=== PATIENT | male | born 1965 | race African-American/Black ===

== ENCOUNTER 2017-12-28 12:12 | Observation (INO) | payer OTHER ==
[~2017-12-28] VITALS: Ht 172.7 cm; Wt 88.0 kg
[2017-12-28 13:05] LABS: BASO % 0.1 %; BASO ABS # 0.01 K/uL (0-0.2); EOS % 0.1 %; EOS ABS # 0.01 K/uL (0-0.5); HEMATOCRIT 51.2 % (42-52); HEMOGLOBIN 17.8 g/dL (14.0-18.0); IG# 0.02 K/uL (0.00-0.02); LYMPH % 4.1 %; LYMPH ABS # 0.33 K/uL (1.2-3.4); MEAN CELL VOLUME 90.9 fL (80-100); MEAN CORPUSCULAR HEMOGLOBIN 31.6 pg (25-34); MEAN CORPUSCULAR HGB CONC 34.8 g/dl (32-36); MEAN PLATELET VOLUME 11.6 fL (7.4-10.4); MONO % 0.7 %; MONO ABS # 0.06 K/uL (0.11-0.59); NEUT % 94.8 %; NEUT ABS # 7.58 K/uL (1.4-6.5); PLATELET COUNT 190 K/uL (130-400); RED CELL DISTRIBUTION WIDTH CV 14.2 % (11.5-14.5); RED CELL DISTRIBUTION WIDTH SD 46.2 fL (36.4-46.3); WHITE BLOOD COUNT 8.01 K/uL (4.8-10.8)
--- NOTE | 2017-12-28 13:05 | DIAGNOSTIC IMAGING REPORT ---
CHEST ONE VIEW PORTABLE CLINICAL HISTORY: Chest Pain dyspnea COMPARISON STUDY: No previous studies for comparison. FINDINGS: The bones soft tissues and hemidiaphragms are normal. The cardiomediastinal silhouette is normal. The lungs are clear. The pulmonary vasculature is normal. IMPRESSION: Negative chest. The above report was generated using voice recognition software. It may contain grammatical, syntax or spelling errors. Electronically signed by: Kelechi Alberts M.D. 12/28/2017 1:04 PM Dictated Date/Time: 12/28/2017 1:03 PM
[2017-12-28] MEDS ORDERED: METH2.5T PO (13:20)
[2017-12-28] MEDS ORDERED: HYDR-5688 PO (13:26)
[2017-12-28] MEDS ORDERED: IBUP-103 PO (13:26)
[2017-12-28] MEDS ORDERED: FOLI1TAB8 PO (13:26)
[2017-12-28] MEDS ORDERED: PRD/1 PO (13:26)
[2017-12-28] MEDS ORDERED: ASPIRIN 81 MG CHEW PO STA (13:47)
[2017-12-28 14:05] LABS: ALBUMIN 2.8 gm/dl (3.4-5.0); ALT/SGPT 27 U/L (12-78); AST/SGOT 18 U/L (15-37); BLOOD UREA NITROGEN 20 mg/dl (7-18); CALCIUM 8.3 mg/dl (8.5-10.1); CARBON DIOXIDE 23 mmol/L (21-32); CREATININE 0.96 mg/dl (0.60-1.40); GLUCOSE 146 mg/dl (70-99); POTASSIUM 3.9 mmol/L (3.5-5.1); SODIUM 137 mmol/L (136-145)
[2017-12-28 14:10] LABS: ALKALINE PHOSPHATASE 62 U/L (45-117); TOTAL PROTEIN 6.9 gm/dl (6.4-8.2)
--- NOTE | 2017-12-28 14:24 | EMERGENCY ROOM VISIT NOTE ---
History Report prepared by Rosita: Jf Marx Under the Supervision of: Dr. Dave Minor M.D. First contact with patient: 12:28 Chief Complaint: OTHER COMPLAINT Stated Complaint: RITUXAN REACTION History of Present Illness The patient is a 52 year old male who presents to the Emergency Room with several different complaints that occurred just prior to arrival while he was receiving an infusion for his rheumatoid arthritis. The patient states that while he was receiving his medications he suddenly got a sore throat and was having trouble swallowing. He describes the pain as the "throat swelling." He also notes that he had a pain in his upper abdomen/lower chest the left side. He described it more as an ache. No exacerbating or remitting factors. After the sorethroat onset he felt tingling all over his body and became diaphoretic. This is the third infusion the patient has received, and he tolerated the first two well. He denies any trouble breathing, chest pain, burning with urination. He notes that he feels pretty much back to baseline at this time. Upon arrival to the ER all of his symptoms nearly completely abated. Source of History: patient Onset: Just prior to arrival Position: throat Quality: other (swelling throat) Timing: resolved Associated Symptoms: + diaphoresis, + numbness ("tingling" all over his body ), No chest pain, No SOB, No urinary symptoms Review of Systems See HPI for pertinent positives & negatives. A total of 10 systems reviewed and were otherwise negative. Past Medical & Surgical Hx of Hypertension and Rheumatoid Arthritis Social History Smoking Status: Never Smoker Current/Historical Medications Scheduled Folic Acid (Folvite), 1 MG PO QAM Ibuprofen Tab (Advil), 800 MG PO UD Methotrexate (Methotrexate), 6 TABS PO TUESDAY Prednisone (Prednisone), 1.5 MG PO QAM Scheduled PRN Hydrocodone/Acetaminophen 5MG/325MG ([place] 5MG/325MG), 1 TABLET PO Q6H PRN for Pain Allergies Coded Allergies: No Known Allergies (Unverified , 12/28/17) Physical Exam Vital Signs Date Time Temp Pulse Resp B/P (MAP) Pulse Ox O2 Delivery O2 Flow Rate FiO2 12/28/17 14:11 75 16 144/112 12/28/17 12:18 36.7 81 20 142/104 96 Room Air Physical Exam GENERAL: Sitting up in bed, alert, well appearing, well nourished, no distress, non-toxic EYE EXAM: normal conjunctiva. OROPHARYNX: no exudate, no erythema, lips, buccal mucosa, and tongue normal and mucous membranes are moist NECK: supple, no nuchal rigidity, no adenopathy, non-tender LUNGS: Clear to auscultation. Normal chest wall mechanics HEART: no murmurs, S1 normal and S2 normal ABDOMEN: abdomen soft, non-tender, normo-active bowel sounds, no masses, no rebound or guarding. BACK: Back is symmetrical on inspection and there is no deformity, no midline tenderness, no CVA tenderness. SKIN: no rashes and no bruising UPPER EXTREMITIES: upper extremities are grossly normal. There is an IV placed in the right forearm. LOWER EXTREMITIES: No pitting edema. NEURO EXAM: Normal sensorium, cranial nerves II-XII grossly intact, normal speech, no gross weakness of arms, no gross weakness of legs. Medical Decision & Procedures ER Provider Diagnostic Interpretation: Radiology results as stated below per my review and the radiologist's interpretation: CHEST ONE VIEW PORTABLE CLINICAL HISTORY: Chest Pain dyspnea COMPARISON STUDY: No previous studies for comparison. FINDINGS: The bones soft tissues and hemidiaphragms are normal. The cardiomediastinal silhouette is normal. The lungs are clear. The pulmonary vasculature is normal. IMPRESSION: Negative chest. The above report was generated using voice recognition software. It may contain grammatical, syntax or spelling errors. Electronically signed by: Kelechi Alberts M.D. 12/28/2017 1:04 PM Dictated Date/Time: 12/28/2017 1:03 PM Laboratory Results 12/28/17 10:55 Red Blood Count 5.63, Mean Corpuscular Volume 90.9, Mean Corpuscular Hemoglobin 31.6, Mean Corpuscular Hemoglobin Concent 34.8, Mean Platelet Volume 11.6, Neutrophils (%) (Auto) 94.8, Lymphocytes (%) (Auto) 4.1, Monocytes (%) (Auto) 0.7, Eosinophils (%) (Auto) 0.1, Basophils (%) (Auto) 0.1, Neutrophils # (Auto) 7.58, Lymphocytes # (Auto) 0.33, Monocytes # (Auto) 0.06, Eosinophils # (Auto) 0.01, Basophils # (Auto) 0.01 12/28/17 13:32 Test 12/28/17 10:55 12/28/17 13:32 12/28/17 13:34 White Blood Count 8.01 K/uL (4.8-10.8) Red Blood Count 5.63 M/uL (4.7-6.1) Hemoglobin 17.8 g/dL (14.0-18.0) Hematocrit 51.2 % (42-52) Mean Corpuscular Volume 90.9 fL (80-100) Mean Corpuscular Hemoglobin 31.6 pg (25-34) Mean Corpuscular Hemoglobin Concent 34.8 g/dl (32-36) Platelet Count 190 K/uL (130-400) Mean Platelet Volume 11.6 fL (7.4-10.4) Neutrophils (%) (Auto) 94.8 % Lymphocytes (%) (Auto) 4.1 % Monocytes (%) (Auto) 0.7 % Eosinophils (%) (Auto) 0.1 % Basophils (%) (Auto) 0.1 % Neutrophils # (Auto) 7.58 K/uL (1.4-6.5) Lymphocytes # (Auto) 0.33 K/uL (1.2-3.4) Monocytes # (Auto) 0.06 K/uL (0.11-0.59) Eosinophils # (Auto) 0.01 K/uL (0-0.5) Basophils # (Auto) 0.01 K/uL (0-0.2) RDW Standard Deviation 46.2 fL (36.4-46.3) RDW Coefficient of Variation 14.2 % (11.5-14.5) Immature Granulocyte % (Auto) 0.2 % Immature Granulocyte # (Auto) 0.02 K/uL (0.00-0.02) Anion Gap 4.0 mmol/L (3-11) Est Creatinine Clear Calc Drug Dose 97.6 ml/min Estimated GFR () 104.9 Estimated GFR (Non- 90.5 BUN/Creatinine Ratio 20.8 (10-20) Calcium Level 8.3 mg/dl (8.5-10.1) Total Bilirubin 0.4 mg/dl (0.2-1) Direct Bilirubin < 0.1 mg/dl (0-0.2) Aspartate Amino Transf (AST/SGOT) 18 U/L (15-37) Alanine Aminotransferase (ALT/SGPT) 27 U/L (12-78) Alkaline Phosphatase 62 U/L (45-117) Troponin I < 0.015 ng/ml (0-0.045) Total Protein 6.9 gm/dl (6.4-8.2) Albumin 2.8 gm/dl (3.4-5.0) Laboratory results per my review. Medications Administered Medications (Trade) Dose Ordered Sig/Maile Route Start Time Stop Time Status Last Admin Dose Admin Aspirin (Aspirin Chew) 324 mg NOW STAT PO 12/28/17 13:47 12/28/17 13:50 DC 12/28/17 14:10 324 MG ECG Per My Interpretation Indication: diaphoresis Rate (beats per minute): 79 Rhythm: sinus rhythm Findings: T-wave inversion (Lateral), ST elevation (Septal) Change: REPEAT EKG ON VISIT IS UNCHANGED ED Course ED COURSE: Vital signs were reviewed and showed situationally hypertensive blood pressure. The patients medical record was reviewed The above diagnostic studies were performed and reviewed. ED treatments and interventions as stated above. 1233: The patient was evaluated in room C5. A complete history and physical examination was performed. 1432: I discussed the case with Dr. Anderson - Cardiology. He suggests admitting the patient to medicine and starting Heparin. 1437: Upon reevaluation, the patient is resting in bed.I discussed my findings with the patient and he understands and agrees with the treatment plan. Based on the patients age, coexisting illnesses, exam and lab findings the decision to treat as an inpatient was made. The patient remained stable while under my care. The patient will be evaluated for further management. 1442: I discussed the case with Adriana Lira [facility] Hospitalist VALERIO. She will evaluate the patient for further treatment. Medical Decision Differential diagnosis: Etiologies such as allergic reaction, anaphylaxis, urticaria, Tim-Nic syndrome, toxic epidermal necrolysis, erythema multiforme, cellulitis, as well as others were entertained. Patient is a 52-year-old male with a past medical history of hypertension and family heart disease that presents to the ER with left upper quadrant/left chest pain associated with nausea, diaphoresis and near vomiting. Symptoms nearly completely resolved upon presentation to the ER. He has no chest pain or shortness of breath. EKG shows flipped T waves in the lateral leads with ST segment elevation in the septal. Patient was completely asymptomatic in regards to chest pain shortness of breath upon presentation consequently did not make this a STEMI alert. 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 Consequently called cardiology from [facility] and discussed case. Labs including CBC along with BMP and troponin were negative. Re-updated the patient. Per cardiology's recommendation patient was placed on heparin drip and bolus after prolonged discussion in regards to bleeding risk factors. He denies any previous brain bleed, strokes, coughing up blood, vomiting blood, urinating blood or blood in the stool. He denies any trauma. Medication Reconcilliation Current Medication List: was personally reviewed by me Blood Pressure Screening Patient's blood pressure: Elevated blood pressure Blood pressure disposition: Elevated BP felt to be situational Consults Time Called: 1427 Consulting Physician: Dr. Monica Walters Cardiology Returned Call: 1432 I discussed the case with Dr. Anderson - [place]. He suggests admitting the patient to medicine and starting Heparin. Additional Consults: Time Called: 1437 Consulted Physician: Adriana Stewart PA-C Returned Call: 1434 Additional Comments: I discussed the case with Adriana Stewart PA-C. She will evaluate the patient for further treatment. Impression Primary Impression: Chest pain Additional Impressions: ST segment changes on electrocardiogram Reaction, drug, adverse Critical Care I have personally spent 35 minutes of critical care time in the direct management of this patient. This includes bedside care, interpretation of diagnostic studies, and testing, discussion with consultants, patient, and family members, and other required patient management activities. This 35 minutes is in excess of all separately billable procedures. Scribe Attestation The scribe's documentation has been prepared under my direction and personally reviewed by me in its entirety. I confirm that the note above accurately reflects all work, treatment, procedures, and medical decision making performed by me. Departure Information Dispostion Being Evaluated By Hospitalist Patient Instructions My [facility] Problem Qualifiers Primary Impression: Chest pain Chest pain type: unspecified Qualified Codes: R07.9 - Chest pain, unspecified Additional Impressions: Reaction, drug, adverse Encounter type: initial encounter Qualified Codes: T88.7XXA - Unspecified adverse effect of drug or medicament, initial encounter
[2017-12-28 15:11] LABS: PTT PATIENT 23.3 SECONDS (21.0-31.0)
[2017-12-28] MEDS ORDERED: HYDR-3983 PO (15:21)
[2017-12-28 15:22] VITALS: BP_SYST 171; BP_SYST 178; BP_DIAS 101; BP_DIAS 115; PULSE 81; TEMP 37.2; O2SAT 96; Ht 172.7 cm; Wt 88.0 kg
--- NOTE | 2017-12-28 15:27 | History and Physical ---
History & Physical Date & Time of Service: Dec 28, 2017 at 15:24 Chief Complaint: Rituxan Reaction Primary Care Physician: No Doctor, Assigned History of Present Illness Source: patient, clinic records, hospital records Patient is a 52-year-old male with a PMH of HTN, tobacco use disorder and rheumatoid arthritis who presents from [facility] with sudden onset left chest/LUQ pain. Patient was receiving Rituxan infusion and started to experience a sore throat, trouble swallowing "tingling" all over his body. Then experienced sudden onset, 10/10 left lower chest/epigastric pain that felt like "someone punching me in the gut". Endorses profuse sweating, nausea and an episode of bilious vomit. Denies any shortness of breath, near syncope or radiation of pain to jaw or arms. Patient was taken to ED for further evaluation and symptoms completely resolved by the time he arrived. No previous history of heart disease, diabetes or high cholesterol. Patient's mom from [place] at age 58. Also has significant history of lupus in family with cardiac manifestations. Has experienced 2 previous cycles of Rituxan and tolerated them without a problem. Follows with Dr. Rodriguez of [facility] rheumatology and current regimen includes 1.5 prednisone mg daily, Rituxan infusions and methotrexate 15 mg weekly. Denies fever, chills, lightheadedness, dizziness, near syncope, visual changes, chest pain, shortness of breath, abdominal pain, nausea, vomiting, bowel or bladder changes or LE swelling. Past Medical/Surgical History Medical Problems: (1) HTN (hypertension) Status: Chronic (2) Rheumatoid arthritis involving ankle with positive rheumatoid factor Status: Chronic (3) Tobacco use disorder Status: Chronic Family History FH: heart disease FH: lupus FHx: rheumatoid arthritis Social History Smoking Status: Current Every Day Smoker (0.5 ppd ) Alcohol Use: heavy (2-3 beers daily ) Allergies Coded Allergies: No Known Allergies (Unverified , 12/28/17) Home Medications Scheduled Folic Acid (Folvite), 1 MG PO QAM Ibuprofen Tab (Advil), 800 MG PO UD Methotrexate (Methotrexate), 6 TABS PO TUESDAY Prednisone (Prednisone), 1.5 MG PO QAM Scheduled PRN Hydrocodone/Acetaminophen 7.5MG/325MG ([place] 7.5MG/325MG), 1 TAB PO Q6 PRN for Pain Review of Systems Ten systems reviewed and negative except as noted in the HPI. Physical Exam Vital Signs Date Time Temp Pulse Resp B/P (MAP) Pulse Ox O2 Delivery O2 Flow Rate FiO2 12/28/17 14:11 75 16 144/112 12/28/17 12:18 36.7 81 20 142/104 96 Room Air General Appearance: WD/WN, no apparent distress Head: normocephalic, atraumatic Eyes: normal inspection, PERRL, sclerae normal ENT: normal ENT inspection, hearing grossly normal, pharynx normal (moist mucous membranes ) Neck: supple, thyroid normal, trachea midline Respiratory/Chest: chest non-tender, lungs clear, normal breath sounds, no respiratory distress, no accessory muscle use Cardiovascular: regular rate, rhythm, no murmur, normal peripheral pulses Abdomen/GI: normal bowel sounds, non tender, soft, no organomegaly Back: normal inspection Extremities/Musculoskelatal: normal inspection, no calf tenderness, no pedal edema Neurologic/Psych: no motor/sensory deficits, alert, normal mood/affect, oriented x 3 Skin: normal color, warm/dry Diagnostics Laboratory Results Results Past 24 Hours Test 12/28/17 10:55 12/28/17 13:32 12/28/17 13:34 Range/Units White Blood Count 8.01 4.8-10.8 K/uL Red Blood Count 5.63 4.7-6.1 M/uL Hemoglobin 17.8 14.0-18.0 g/dL Hematocrit 51.2 42-52 % Mean Corpuscular Volume 90.9 80-100 fL Mean Corpuscular Hemoglobin 31.6 25-34 pg Mean Corpuscular Hemoglobin Concent 34.8 32-36 g/dl Platelet Count 190 130-400 K/uL Mean Platelet Volume 11.6 7.4-10.4 fL Neutrophils (%) (Auto) 94.8 % Lymphocytes (%) (Auto) 4.1 % Monocytes (%) (Auto) 0.7 % Eosinophils (%) (Auto) 0.1 % Basophils (%) (Auto) 0.1 % Neutrophils # (Auto) 7.58 1.4-6.5 K/uL Lymphocytes # (Auto) 0.33 1.2-3.4 K/uL Monocytes # (Auto) 0.06 0.11-0.59 K/uL Eosinophils # (Auto) 0.01 0-0.5 K/uL Basophils # (Auto) 0.01 0-0.2 K/uL RDW Standard Deviation 46.2 36.4-46.3 fL RDW Coefficient of Variation 14.2 11.5-14.5 % Immature Granulocyte % (Auto) 0.2 % Immature Granulocyte # (Auto) 0.02 0.00-0.02 K/uL Sodium Level 137 136-145 mmol/L Potassium Level 3.9 3.5-5.1 mmol/L Chloride Level 110 98-107 mmol/L Carbon Dioxide Level 23 21-32 mmol/L Anion Gap 4.0 3-11 mmol/L Blood Urea Nitrogen 20 7-18 mg/dl Creatinine 0.96 0.60-1.40 mg/dl Est Creatinine Clear Calc Drug Dose 97.6 ml/min Estimated GFR () 104.9 Estimated GFR (Non- 90.5 BUN/Creatinine Ratio 20.8 10-20 Random Glucose 146 70-99 mg/dl Calcium Level 8.3 8.5-10.1 mg/dl Total Bilirubin 0.4 0.2-1 mg/dl Direct Bilirubin < 0.1 0-0.2 mg/dl Aspartate Amino Transf (AST/SGOT) 18 15-37 U/L Alanine Aminotransferase (ALT/SGPT) 27 12-78 U/L Alkaline Phosphatase 62 45-117 U/L Troponin I < 0.015 0-0.045 ng/ml Total Protein 6.9 6.4-8.2 gm/dl Albumin 2.8 3.4-5.0 gm/dl Prothrombin Time 10.0 9.0-12.0 SECONDS Prothromb Time International Ratio 1.0 0.9-1.1 Activated Partial Thromboplast Time 23.3 21.0-31.0 SECONDS Partial Thromboplastin Ratio 0.9 Diagnostic Radiology CXR: IMPRESSION: Negative chest. EKG Normal sinus rhythm atypical Incomplete right bundle branch block. Nonspecific ST and T wave abnormality (lateral leads) No prior EKG available Impression Assessment and Plan Patient is a 52-year-old male with a PMH of HTN, tobacco use disorder and rheumatoid arthritis who presents from [facility] with sudden onset left chest/LUQ pain. Left chest/epigastric pain: resolved -In reaction to Rituxan infusion -Sudden pain, nausea and vomiting, resolved spontaneously -R/o ACS; risk factors include HTN, tobacco use, + family history -Full dose aspirin given -EKG with NSR, atypical Incomplete right bundle branch block, nonspecific ST and T wave abnormality in lateral leads -CXR without acute changes -Initial troponin negative -Cardiology consulted -Find presentation to be atypical, reaction to medication -Repeat troponin; initiate heparin if indicated -Trend troponin -Echo performed with normal EF, concentric LVH, no wall motion abn -NPO after midnight with plan for stress test HTN: -Amlodipine 5mg given x 1 -Start amlodipine 5mg daily tomorrow AM -Monitor RA: -Follows with [facility] rheum -Cont prednisone, methotrexate (Fridays) -[place] PRN DVT Ppx: IV heparin to be given if indicated. Code status: FULL PCP: None. Needs to establish [facility] PCP at time of discharge Dispo: Telemetry observation. Plan to return home once medically stable. Patient seen in collaboration with Dr. Gore. Please see addendum. Attending Addendum Pt was seen and examined. Agreed with Adriana LUO exam, assessment and plan. 52- year-old male with a PMH of HTN, tobacco use disorder and rheumatoid arthritis was sent to the ER after he developed chest pain located in the left side during his Rituxan infusion. Pt said that chest pain felt like someone punching him in his chest. Pt said that during the episode, he became sweating , nauseated and vomited. he was seen by cardiology and stat Echo was done in the ER. Currently pt is asymptomatic. Denies any chest pain, palpitation, dizziness and SOB. General- No acute distress Head- atraumatic Eyes- PERRL, EOMI ENT- oropharynx clear Neck- supple, no JVD Lungs- No wheezing Heart- regular rhythm Abdomen- normal bowel sounds Extremities- no calf tenderness Neuro- alert, oriented, PERRL Chest pain Possible related to Rituxan infusion reaction Need to r/o ACS Troponin negative on admission Will follow 2 more sets troponin EKG with NSR, atypical Incomplete right bundle branch block Cardiology on board continue aspirin If troponin elevates, will start on heparin drip Will put NPO after midnight for stress test in am Echo showed * Left ventricular systolic function is normal. * Ejection Fraction = 55-60%. * There is moderate concentric left ventricular hypertrophy. * Focal thickening of the basal anterior septum with a maximum thickness of 1.6cm. * The left ventricular wall motion is normal. * Grade I diastolic dysfunction, (abnormal relaxation pattern). Please refer to Adriana LUO documentation for other problems. MD Bao Resuscitation Status VTE Prophylaxis Will order VTE Prophylaxis: Yes
[2017-12-28] MEDS: HEPARIN SOD (PORCINE) 1000 UNIT/ML 10 ML VIAL ONE ×2 (15:29→15:35)
[2017-12-28] MEDS ORDERED: HEPARIN IV BOLUS 6,000 UNIT in SYRINGE 0 ML IV ONE (15:30)
[2017-12-28] MEDS: HEPARIN 25,000 UNIT/500ML D5W 500 ML IV SCH ×2 (15:37→17:03)
[2017-12-28] MEDS ORDERED: AMLODIPINE BESYLATE 5 MG TAB PO ONE (16:10)
[2017-12-28] MEDS ORDERED: IV FLUIDS COMPLETED PRN (16:30)
--- NOTE | 2017-12-28 16:45 | ECHOCARDIOGRAM REPORT ---
*NOTICE TO RECEIVING LIBERTARIAN AGENCY This information is strictly Confidential and protected under [place] law. [place] law prohibits you from making any further disclosure of this information unless further disclosure is expressly permitted by the written consent of the person to whom it pertains or is authorized by law. A general authorization for the release of medical or other information is not sufficient for this purpose. Hospital accepts no responsibility if the information is made available to any other person, INCLUDING THE PATIENT. Interpretation Summary * Name: CHUN HOLT Study Date: 12/28/2017 03:40 PM BP: 144/112 mmHg * Patient Location: [facility] HR: 75 * : 1965 (M/d/yyyy) Gender: Male Height: 68 in * Age: 52 yrs Ethnicity: AA Weight: 196 lb * Ordering Physician: Kit Anderson * Referring Physician: Self, Referred * Performed By: Stephan Montenegro RCS * * Reason For Study: Chest Pain * BSA: 2.0 m2 * The study was technically adequate. * There is no comparison study available. * -- Conclusions -- * Left ventricular systolic function is normal. * Ejection Fraction = 55-60%. * There is moderate concentric left ventricular hypertrophy. * Focal thickening of the basal anterior septum with a maximum thickness of 1.6cm. * The left ventricular wall motion is normal. * Grade I diastolic dysfunction, (abnormal relaxation pattern). Procedure Details * A complete two-dimensional transthoracic echocardiogram was performed (2D, M-mode, Doppler and color flow Doppler). Left Ventricle * The left ventricle is normal in size. * There is no thrombus. * There is moderate concentric left ventricular hypertrophy. * Focal thickening of the basal anterior septum with a maximum thickness of 1.6cm. * Echo findings are not consistent with left ventricular outflow obstruction. * Ejection Fraction = 55-60%. * Left ventricular systolic function is normal. * The left ventricular wall motion is normal. Right Ventricle * The right ventricle is normal size. * The right ventricular systolic function is normal as assessed by tricuspid annular plane systolic excursion (TAPSE) (normal >1.5 cm). Atria * The left atrial size is normal. * Right atrial size is normal. * There is no evidence of atrial septal defect, but resolution does not allow assessment for a patent foramen ovale. Mitral Valve * The mitral valve is normal. * There is no mitral valve stenosis. * Significant mitral regurgitation is absent. Tricuspid Valve * The tricuspid valve is normal. * There is no tricuspid stenosis. * Significant tricuspid regurgitation is absent. Aortic Valve * The aortic valve is trileaflet. * Aortic stenosis is absent. * There is no significant aortic regurgitation. Pulmonic Valve * The pulmonary valve is not well seen, but the Doppler examination is normal without significant regurgitation or stenosis. Great Vessels * The aortic root and proximal ascending aorta are normal sized. Pericardium/Pleural * There is no pericardial effusion. Great Vessels * Normal inferior vena cava diameter and respiratory variation suggests normal central venous pressure. Left Ventricular Diastolic Function * Grade I diastolic dysfunction, (abnormal relaxation pattern). MMode 2D Measurements and Calculations IVSd 1.5 cm IVSs 2.0 cm LVIDd 3.9 cm LVIDs 2.4 cm LVPWd 1.5 cm LVPWs 2.0 cm IVS/LVPW 1.0 FS 38.9 % EDV(Teich) 67.3 ml ESV(Teich) 20.2 ml EF(Teich) 69.9 % EDV(cubed) 60.8 ml ESV(cubed) 13.9 ml EF(cubed) 77.2 % % IVS thick 34.6 % % LVPW thick 31.1 % LV mass(C)d 229.5 grams LV mass(C)dI 113.3 grams/m\S\2 LV mass(C)s 208.7 grams LV mass(C)sI 103.0 grams/m\S\2 SV(Teich) 47.0 ml SI(Teich) 23.2 ml/m\S\2 SV(cubed) 46.9 ml SI(cubed) 23.2 ml/m\S\2 Ao root diam 3.8 cm Ao root area 11.4 cm\S\2 ACS 2.4 cm LA dimension 3.8 cm asc Aorta Diam 3.1 cm LA/Ao 1.0 EDV(MOD-sp4) 134.0 ml ESV(MOD-sp4) 68.0 ml EF(MOD-sp4) 49.3 % EDV(MOD-sp2) 123.0 ml ESV(MOD-sp2) 64.0 ml EF(MOD-sp2) 48.0 % SV(MOD-sp4) 66.0 ml SI(MOD-sp4) 32.6 ml/m\S\2 SV(MOD-sp2) 59.0 ml SI(MOD-sp2) 29.1 ml/m\S\2 Doppler Measurements and Calculations MV E max fely 62.1 cm/sec MV A max fely 96.4 cm/sec MV E/A 0.64 MV P1/2t max fely 56.1 cm/sec MV P1/2t 98.3 msec MVA(P1/2t) 2.2 cm\S\2 MV dec slope 167.1 cm/sec\S\2 MV dec time 0.32 sec Ao V2 max 79.4 cm/sec Ao max PG 2.5 mmHg Ao max PG (full) 0.33 mmHg LV V1 max PG 2.2 mmHg LV V1 max 74.1 cm/sec PA V2 max 91.6 cm/sec PA max PG 3.4 mmHg
--- NOTE | 2017-12-28 16:55 | CARDIOLOGY CONSULTATION ---
DATE OF CONSULTATION: 12/28/2017 Cariology consultation. REASON FOR CONSULTATION: Abnormal EKG. HISTORY OF PRESENT ILLNESS: Mr. Khoury is a 52-year-old -[place] gentleman who is in the infusion clinic today for Rituxan. Carries a history of rheumatoid arthritis. Also carries a history of hypertension; however, does not take medications. About 3 hours into his 5-hour infusion, patient experienced severe epigastric and abdominal discomfort. This was followed by retching and vomiting bilious material. Patient became diaphoretic. He notes paresthesias, described as an electric shock like sensation down his bilateral upper extremities. The discomfort lasted for approximately 30 minutes. He was brought to the Emergency Department where his symptoms seem to gradually resolve. Upon my assessment in the ER, patient is pain free. No lingering nausea or abdominal pain. Adamantly denies any chest tightness, heaviness and discomfort. Denies personal history of coronary disease, congestive heart failure, diabetes, rheumatic fever as a child, or peripheral vascular disease. In general, he is an active person. 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 Denies any exertional symptoms in his day-to-day activity. No orthopnea, PND, palpitations, lightheadedness, dizziness, syncope, or near syncope. Telemetry reveals sinus rhythm. Patient offers no other concerns/complaints at this time. REVIEW OF SYSTEMS: The pertinent positive noted above, significant for chronic joint discomfort. Comprehensive 10-system review is otherwise negative. PAST MEDICAL HISTORY: 1. Rheumatoid arthritis. 2. Hypertension. PAST SURGICAL HISTORY: Denied. SOCIAL HISTORY: Current every day smoker, smoking approximately 1/2 pack per day for 30 years. FAMILY HISTORY: Mother with coronary disease before age 56 although he is unsure of details. ALLERGIES: No known drug allergies. CURRENT OUTPATIENT MEDICATIONS: 1. Folic acid daily. 2. Ibuprofen 800 mg as needed. 3. Methotrexate on Fridays. 4. Prednisone 1.5 mg daily. 5. Hydrocodone/acetaminophen as needed for pain. ECG demonstrates sinus rhythm with a left axis deviation, incomplete right bundle branch block, ST-T wave abnormality, consider lateral ischemia. LABORATORY DATA: Initial troponin undetectable less than 0.015. Sodium 137, potassium 3.9, chloride 110, CO2 23, BUN is 20, creatinine 0.96. White blood cell count 8.01, hemoglobin 17.8, platelet count is 190. INR is 1.0. Chest x-ray on admission, no acute disease. PHYSICAL EXAMINATION: VITAL SIGNS: Temperature is 36.7 degrees centigrade, pulse 75 beats per minute and regular, respiratory rate 16 breaths per minute, blood pressure 144/112. GENERAL: NAD, awake, alert and oriented x3, pleasant and cooperative. HEENT: Mucous membranes are moist. No scleral icterus. Conjunctivae pink. HEART: Regular with a normal S1 and S2. No murmur, rub, or gallop. LUNGS: Clear without rales, rhonchi, or wheeze. ABDOMEN: Soft and nontender. No rebound or guarding. Normal bowel sounds. EXTREMITIES: Warm and dry. There is no clubbing, cyanosis or edema. NEUROLOGIC: Demonstrates no focal deficit. FINAL IMPRESSION: 1. A 52-year-old patient presents with epigastric and abdominal discomfort. Concerns regarding possible cardiac event secondary to abnormal resting 12-lead ECG with ST-T wave abnormality in the lateral leads. No prior ECG for comparison. Initial troponin negative. Patient currently asymptomatic. Abdominal symptoms possibly secondary to adverse reaction to Rituxan. 2. Hypertension -- uncontrolled. 3. Family history of coronary artery disease. 4. Active tobacco abuse. 5. Unknown lipid status. PLAN AND RECOMMENDATIONS: A resting 2D transthoracic echo will be performed to assess wall motion as well as eliminate possibility of underlying pericardial effusion given rheumatologic disease. Uncontrolled hypertension requires attention. Recommend thiazide diuretic or calcium channel richie at this time. I will add amlodipine 5 mg daily. No prior ECGs available for comparison. Further ischemic evaluation will be warranted given baseline 12-lead abnormalities. A repeat troponin will be performed at 4:00 p.m. and then every 6 hours x3 sets. If cardiac enzymes are negative, we will likely plan stress testing in a.m. Will not add IV heparin at this time. Thank you for allowing me to participate in the care of your patient. ANDREY
[2017-12-28 19:10] VITALS: BP 162/103; PULSE 85; TEMP 36.8; O2SAT 94
[2017-12-28 20:00] VITALS: O2SAT 96
[2017-12-28] MEDS ORDERED: HydrALAZINE HCL 20 MG/ML VIAL IV. PRN (20:00)
[2017-12-28 22:00] LABS: PTT PATIENT 27.1 SECONDS (21.0-31.0)
[2017-12-28 23:30] VITALS: BP 153/76; PULSE 73; TEMP 36.7; O2SAT 94
[2017-12-28] MEDS: OXYCODONE/ACETAMINOPHEN 5-325 TAB PO PRN (23:43)
[2017-12-29] VITALS (7 sets, daily range): BP systolic 151–163; BP diastolic 79–94; PULSE 67–84; TEMP 36.5–36.8; O2SAT 93–96
[2017-12-29 07:01] LABS: HEMOGLOBIN A1C 5.6 % (4.5-5.6)
[2017-12-29 07:07] LABS: PTT PATIENT 22.8 SECONDS (21.0-31.0)
[2017-12-29 07:10] LABS: EOS % 0.2 %; EOS ABS # 0.02 K/uL (0-0.5); HEMATOCRIT 42.6 % (42-52); HEMOGLOBIN 14.8 g/dL (14.0-18.0); IG# 0.03 K/uL (0.00-0.02); LYMPH % 17.2 %; LYMPH ABS # 1.39 K/uL (1.2-3.4); MEAN CELL VOLUME 89.7 fL (80-100); MEAN CORPUSCULAR HEMOGLOBIN 31.2 pg (25-34); MEAN CORPUSCULAR HGB CONC 34.7 g/dl (32-36); MEAN PLATELET VOLUME 10.8 fL (7.4-10.4); MONO % 9.7 %; MONO ABS # 0.78 K/uL (0.11-0.59); NEUT % 72.5 %; NEUT ABS # 5.84 K/uL (1.4-6.5); PLATELET COUNT 189 K/uL (130-400); RED CELL DISTRIBUTION WIDTH CV 13.9 % (11.5-14.5); RED CELL DISTRIBUTION WIDTH SD 45.3 fL (36.4-46.3); WHITE BLOOD COUNT 8.06 K/uL (4.8-10.8)
[2017-12-29 07:31] LABS: CALCIUM 8.2 mg/dl (8.5-10.1); CREATININE 0.81 mg/dl (0.60-1.40); POTASSIUM 3.7 mmol/L (3.5-5.1)
[2017-12-29] MEDS: OXYCODONE/ACETAMINOPHEN 5-325 TAB PO PRN (08:54)
[2017-12-29] MEDS ORDERED: AMLODIPINE BESYLATE 5 MG TAB PO SCH (09:00)
--- NOTE | 2017-12-29 09:31 | Cardiology Follow-Up ---
Subjective General Date of Service: Dec 29, 2017. Pt evaluation today including: conversation w/ patient, physical exam, chart review, lab review, review of studies, review of inpatient medication list History of Present Illness The patient is a 52 year old male seen in follow-up. No recurrent abdominal or epigastric discomfort overnight. Lateral T-wave inversions resolved on ECG. Patient is feeling well from a cardiovascular perspective. Cardiac enzymes are undetectable. No regional wall motion abnormalities on echocardiogram. Allergies Coded Allergies: No Known Allergies (Unverified , 12/28/17) Social History Smoking Status: Current Every Day Smoker (0.5 ppd ) Hx Alcohol Use - Type And Amou: No Hx Substance Use - Type And Am: No Problem List Medical Problems: (1) Chest pain Status: Acute (2) Reaction, drug, adverse Status: Acute (3) ST segment changes on electrocardiogram Status: Acute Review of Systems Respiratory: No cough, No sputum, No wheezing, No shortness of breath, No dyspnea on exertion, No dyspnea at rest, No hemoptysis Cardiac: No chest pain, No orthopnea, No PND, No edema, No claudication, No palpitations Physical Exam Vital Signs Last Vital Signs Documentation Date Time Temp Pulse Resp B/P (MAP) Pulse Ox O2 Delivery O2 Flow Rate FiO2 12/29/17 07:55 36.8 67 19 151/87 (108) 96 Room Air Physical Exam Constitutional: General Apperance: heathly-appearing Level of Distress: NAD Ambulation: ambulating normally Head: normocephalic, atraumatic Lungs: Auscultation: breath sounds normal, no wheezing, no rales/crackles, no rhonchi Cardiovascular: Heart Auscultation: RRR, normal S1, normal S2, no murmurs, no rubs, no gallops Peripheral Pulses: Radial Pulse: normal on the right Abdomen: Bowel Sounds: normal Inspection & Palpation: soft, non-distended, no tenderness, guarding & rebound Musculoskeletal: normal Extremities: no cyanosis, no edema, no clubbing, no ulcers Neurologic: Gait & Station: pertinent finding (No focal motor deficit.) Cranial Nerves: grossly intact Assessment and Plan Assessment and Plan FINAL IMPRESSION: 1. 52-year-old patient presents with epigastric and abdominal discomfort. -Likely secondary to adverse reaction to Rituxan. -No evidence of acute coronary syndrome with abnormal resting ECG likely indicative of hypertensive heart disease/LVH 2. Hypertension --improved with addition of amlodipine 3. Family history of coronary artery disease. 4. Active tobacco abuse. PLAN AND RECOMMENDATIONS: Exercise stress echocardiography will be performed for further risk stratification. Continue amlodipine 5 mg daily with consideration for addition of hydrochlorothiazide at follow-up. Importance of compliance discussed. Smoking cessation advised. Further recommendations pending results of stress testing. Laboratory Results Last 24 Hours Test 12/28/17 10:55 12/28/17 13:32 12/28/17 13:34 12/28/17 16:52 White Blood Count 8.01 K/uL Red Blood Count 5.63 M/uL Hemoglobin 17.8 g/dL Hematocrit 51.2 % Mean Corpuscular Volume 90.9 fL Mean Corpuscular Hemoglobin 31.6 pg Mean Corpuscular Hemoglobin Concent 34.8 g/dl Platelet Count 190 K/uL Mean Platelet Volume 11.6 fL Neutrophils (%) (Auto) 94.8 % Lymphocytes (%) (Auto) 4.1 % Monocytes (%) (Auto) 0.7 % Eosinophils (%) (Auto) 0.1 % Basophils (%) (Auto) 0.1 % Neutrophils # (Auto) 7.58 K/uL Lymphocytes # (Auto) 0.33 K/uL Monocytes # (Auto) 0.06 K/uL Eosinophils # (Auto) 0.01 K/uL Basophils # (Auto) 0.01 K/uL RDW Standard Deviation 46.2 fL RDW Coefficient of Variation 14.2 % Immature Granulocyte % (Auto) 0.2 % Immature Granulocyte # (Auto) 0.02 K/uL Sodium Level 137 mmol/L Potassium Level 3.9 mmol/L Chloride Level 110 mmol/L Carbon Dioxide Level 23 mmol/L Anion Gap 4.0 mmol/L Blood Urea Nitrogen 20 mg/dl Creatinine 0.96 mg/dl Est Creatinine Clear Calc Drug Dose 97.6 ml/min Estimated GFR () 104.9 Estimated GFR (Non- 90.5 BUN/Creatinine Ratio 20.8 Random Glucose 146 mg/dl Calcium Level 8.3 mg/dl Total Bilirubin 0.4 mg/dl Direct Bilirubin < 0.1 mg/dl Aspartate Amino Transf (AST/SGOT) 18 U/L Alanine Aminotransferase (ALT/SGPT) 27 U/L Alkaline Phosphatase 62 U/L Troponin I < 0.015 ng/ml < 0.015 ng/ml Total Protein 6.9 gm/dl Albumin 2.8 gm/dl Prothrombin Time 10.0 SECONDS Prothromb Time International Ratio 1.0 Activated Partial Thromboplast Time 23.3 SECONDS Partial Thromboplastin Ratio 0.9 Test 12/28/17 19:22 12/28/17 21:31 12/29/17 01:44 12/29/17 06:26 Troponin I < 0.015 ng/ml < 0.015 ng/ml Activated Partial Thromboplast Time 27.1 SECONDS 22.8 SECONDS Partial Thromboplastin Ratio 1.0 0.9 White Blood Count 8.06 K/uL Red Blood Count 4.75 M/uL Hemoglobin 14.8 g/dL Hematocrit 42.6 % Mean Corpuscular Volume 89.7 fL Mean Corpuscular Hemoglobin 31.2 pg Mean Corpuscular Hemoglobin Concent 34.7 g/dl Platelet Count 189 K/uL Mean Platelet Volume 10.8 fL Neutrophils (%) (Auto) 72.5 % Lymphocytes (%) (Auto) 17.2 % Monocytes (%) (Auto) 9.7 % Eosinophils (%) (Auto) 0.2 % Basophils (%) (Auto) 0.0 % Neutrophils # (Auto) 5.84 K/uL Lymphocytes # (Auto) 1.39 K/uL Monocytes # (Auto) 0.78 K/uL Eosinophils # (Auto) 0.02 K/uL Basophils # (Auto) 0.00 K/uL RDW Standard Deviation 45.3 fL RDW Coefficient of Variation 13.9 % Immature Granulocyte % (Auto) 0.4 % Immature Granulocyte # (Auto) 0.03 K/uL Sodium Level 139 mmol/L Potassium Level 3.7 mmol/L Chloride Level 109 mmol/L Carbon Dioxide Level 24 mmol/L Anion Gap 6.0 mmol/L Blood Urea Nitrogen 19 mg/dl Creatinine 0.81 mg/dl Est Creatinine Clear Calc Drug Dose 115.0 ml/min Estimated GFR () 118.4 Estimated GFR (Non- 102.2 BUN/Creatinine Ratio 23.2 Random Glucose 95 mg/dl Estimated Average Glucose 114 mg/dl Hemoglobin A1c 5.6 % Calcium Level 8.2 mg/dl Triglycerides Level 206 mg/dl Cholesterol Level 222 mg/dl HDL Cholesterol 58 mg/dl LDL Cholesterol, Calculated 123 mg/dl VLDL Cholesterol, Calculated 41 mg/dl Cholesterol/HDL Ratio 3.8
--- NOTE | 2017-12-29 12:21 | EXERCISE STRESS ECHO ---
*NOTICE TO RECEIVING DEMOCRAT AGENCY This information is strictly Confidential and protected under [place] law. [place] law prohibits you from making any further disclosure of this information unless further disclosure is expressly permitted by the written consent of the person to whom it pertains or is authorized by law. A general authorization for the release of medical or other information is not sufficient for this purpose. Hospital accepts no responsibility if the information is made available to any other person, INCLUDING THE PATIENT. Interpretation Summary * The study was technically adequate. * The exercise echocardiographic examination is normal without resting left ventricular wall motion abnormalities or inducible ischemia. * Exercise capacity is average. * -- Conclusions -- * Hypertensive baseline blood pressure with a normal response to exercise. * Normal heart rate response to exercise. Procedure Details * ECHOEX, CPT #92011 * Name: CHUN HOLT Study Date: 12/29/2017 10:19 AM BP: 159/86 mmHg Patient Location: [facility]\S\18\S\1 HR: 83 : 1965 (M/d/yyyy) Gender: Male Height: 68 in Age: 52 yrs Ethnicity: AA Weight: 194 lb Ordering Physician: Kit Anderson Referring Physician: Self, Referred Performed By: Alyson Evans RDCS Reason For Study: Abnormal EKG BSA: 2.0 m2 Left Ventricle * There is moderate concentric left ventricular hypertrophy. * Ejection Fraction = 55-60%. * Resting wall motion: Normal. Stress wall motion: Appropriate increase in Left ventricular systolic function and decrease in cavity size. No stress induced segmental wall motion abnormalities. * The left ventricular ejection fraction increases normally with stress. The left ventricular end-systolic cavity size reduces post-stress (normal response). The left ventricular wall motion with stress is normal. Stress Parameters * Resting ECG: Sinus rhythm, lateral inverted T waves. Nonspecific T-wave abnormality in the inferior leads. * Stress ECG: No ischemia. * The stress portion of this study was personally supervised by the undersigned interpreting physician. * Rest heart rate was '83' BPM. * Rest blood pressure was '159/86' * Maximum heart rate achieved was 155 bpm. * Maximum heart rate was 92 % of maximum age-predicted heart rate. * Maximum blood pressure was '168/88' * Total exercise time was '8:04' * Maximum exercise MET level achieved was '10.10' METS * Maximum treadmill speed was '3.40' miles per hour. * Maximum treadmill elevation was '14.00'% grade. * Exercise was terminated due to 'fatigue' * The patient exhibited fatigue during exercise. * Hypertensive baseline blood pressure with a normal response to exercise. Normal heart rate response to exercise.
[2017-12-29] MEDS ORDERED: AMLODIPINE BESYLATE 5 MG TAB PO ONE (13:00)
--- NOTE | 2017-12-29 15:32 | Progress Note ---
Subjective Date of Service: Dec 29, 2017. Subjective Pt evaluation today including: conversation w/ patient, physical exam, lab review, review of studies, review of inpatient medication list Saw/examined the patient in room 218 He's doing well, no problems/issues to note Stress test negative He's doing well now Problem List Medical Problems: (1) Chest pain Status: Acute (2) Reaction, drug, adverse Status: Acute (3) ST segment changes on electrocardiogram Status: Acute Review of Systems Constitutional: No fever, No chills, No weakness Respiratory: No cough, No sputum, No wheezing, No shortness of breath, No dyspnea on exertion, No dyspnea at rest, No hemoptysis Cardiac: No chest pain, No edema, No palpitations Abdomen: No pain, No nausea, No vomiting, No diarrhea Musculoskeletal: + joint pain (chronic) Medications Current Inpatient Medications Medications (Trade) Dose Ordered Sig/Maile Route Start Time Stop Time Status Last Admin Dose Admin Miscellaneous (Iv Fluids Completed) 1 ea PRN PRN N/A 12/28/17 16:30 12/28/18 16:29 Oxycodone/ Acetaminophen (Percocet 5-325mg Tab) 1 tab Q8H PRN PO 12/28/17 20:00 01/11/18 19:59 12/29/17 08:54 1 TAB Amlodipine Besylate (Norvasc Tab) 10 mg QAM PO 12/30/17 09:00 01/28/18 08:59 Objective Vital Signs Date Time Temp Pulse Resp B/P (MAP) Pulse Ox O2 Delivery O2 Flow Rate FiO2 12/29/17 14:10 151/80 (103) 12/29/17 12:00 Room Air 12/29/17 11:44 36.5 84 19 163/94 (117) 93 Room Air 12/29/17 08:00 Room Air 12/29/17 07:55 36.8 67 19 151/87 (108) 96 Room Air 12/29/17 04:00 94 Room Air 12/29/17 03:50 36.8 70 22 154/79 (104) 94 Room Air 12/29/17 01:00 94 Room Air 12/29/17 00:00 94 Room Air 12/28/17 23:30 36.7 73 22 153/76 (101) 94 Room Air 12/28/17 20:00 96 Room Air 12/28/17 19:10 36.8 85 20 162/103 (122) 94 Room Air 12/28/17 17:16 36.7 83 22 157/103 97 12/28/17 16:41 83 22 157/103 97 Room Air 12/28/17 15:22 37.2 81 20 171/115 96 Room Air 178/101 Physical Exam General Appearance: no apparent distress Respiratory/Chest: lungs clear, normal breath sounds, no respiratory distress, no accessory muscle use Cardiovascular: regular rate, rhythm, no edema, no murmur Extremities: normal range of motion, non-tender, normal inspection, no pedal edema, no calf tenderness Neurologic/Psychiatric: no motor/sensory deficits, alert, normal mood/affect Laboratory Results Last 24 Hours Test 12/28/17 16:52 12/28/17 19:22 12/28/17 21:31 12/29/17 01:44 Troponin I < 0.015 ng/ml < 0.015 ng/ml < 0.015 ng/ml Activated Partial Thromboplast Time 27.1 SECONDS Partial Thromboplastin Ratio 1.0 Test 12/29/17 06:26 White Blood Count 8.06 K/uL Red Blood Count 4.75 M/uL Hemoglobin 14.8 g/dL Hematocrit 42.6 % Mean Corpuscular Volume 89.7 fL Mean Corpuscular Hemoglobin 31.2 pg Mean Corpuscular Hemoglobin Concent 34.7 g/dl Platelet Count 189 K/uL Mean Platelet Volume 10.8 fL Neutrophils (%) (Auto) 72.5 % Lymphocytes (%) (Auto) 17.2 % Monocytes (%) (Auto) 9.7 % Eosinophils (%) (Auto) 0.2 % Basophils (%) (Auto) 0.0 % Neutrophils # (Auto) 5.84 K/uL Lymphocytes # (Auto) 1.39 K/uL Monocytes # (Auto) 0.78 K/uL Eosinophils # (Auto) 0.02 K/uL Basophils # (Auto) 0.00 K/uL RDW Standard Deviation 45.3 fL RDW Coefficient of Variation 13.9 % Immature Granulocyte % (Auto) 0.4 % Immature Granulocyte # (Auto) 0.03 K/uL Activated Partial Thromboplast Time 22.8 SECONDS Partial Thromboplastin Ratio 0.9 Sodium Level 139 mmol/L Potassium Level 3.7 mmol/L Chloride Level 109 mmol/L Carbon Dioxide Level 24 mmol/L Anion Gap 6.0 mmol/L Blood Urea Nitrogen 19 mg/dl Creatinine 0.81 mg/dl Est Creatinine Clear Calc Drug Dose 115.0 ml/min Estimated GFR () 118.4 Estimated GFR (Non- 102.2 BUN/Creatinine Ratio 23.2 Random Glucose 95 mg/dl Estimated Average Glucose 114 mg/dl Hemoglobin A1c 5.6 % Calcium Level 8.2 mg/dl Triglycerides Level 206 mg/dl Cholesterol Level 222 mg/dl HDL Cholesterol 58 mg/dl LDL Cholesterol, Calculated 123 mg/dl VLDL Cholesterol, Calculated 41 mg/dl Cholesterol/HDL Ratio 3.8 Assessment and Plan This is a 52 year old male with a past medical history of rheumatoid arthritis, hypertension, tobacco use disorder - presented with an adverse reaction to Rituxan, developing epigastric/chest pain Chest pain r/o ACS - patient with some EKG changes, no prior ones to compare - no elevated troponin x3 - stress test performed - negative - moderate LVH on echo - at this time, will manage risk factors (blood pressure) HTN - blood pressure elevated - will d/c with amlodipine 10mg and low dose HCTZ - outpatient PCP follow-up with Dr. Kruger in [facility] - outpatient f/u with Dr. Rodriguez - likely adverse effect from Rituxan Tobacco Use Disorder - counseled on tobacco cessation FULL CODE
[2017-12-29] MEDS ORDERED: AMLO10TA2 PO (15:36)
[2017-12-29] MEDS ORDERED: HYDR12.56 PO (15:36)
--- NOTE | 2017-12-29 15:37 | Discharge Instructions ---
Discharge Instructions Date of Service Dec 29, 2017. Admission Reason for Admission: Chest Pain,St Segment Changes On Electrocardiogram Discharge Discharge Diagnosis / Problem: Chest Pain, not likely cardiac, high blood pressure Discharge Goals Goal(s): Decrease discomfort, Improve function, Diagnostic testing, Therapeutic intervention Activity Recommendations Activity Limitations: resume your previous activity . Instructions / Follow-Up Instructions / Follow-Up Please follow-up with Dr. Kruger at [facility] on TuesdayJanuary 04 at 8:25AM You are started on two blood pressure medications; primary care should recheck blood pressure as outpatient Current Hospital Diet Patient's current hospital diet: AHA Diet (Heart Healthy) Discharge Diet Recommended Diet: AHA Diet (Heart Healthy) Pending Studies Studies pending at discharge: no Laboratory Results Hemoglobin A1c Test 12/29/17 06:26 Range/Units Estimated Average Glucose 114 mg/dl Hemoglobin A1c 5.6 4.5-5.6 % Lipid Panel Test 12/29/17 06:26 Range/Units Triglycerides Level 206 H 0-150 mg/dl Cholesterol Level 222 H 0-200 mg/dl HDL Cholesterol 58 mg/dl Cholesterol/HDL Ratio 3.8 LDL Cholesterol, Calculated 123 mg/dl Medical Emergencies . Who to Call and When: Medical Emergencies: If at any time you feel your situation is an emergency, please call 911 immediately. . Non-Emergent Contact Non-Emergency issues call your: Primary Care Provider . . "Provider Documentation" section prepared by Harper Uagrte. .
--- NOTE | 2017-12-29 15:59 | Discharge Summary ---
Discharge Summary Date of Service Dec 29, 2017. Discharge Summary Admission Date: Dec 28, 2017 at 15:14 Discharge Date: Dec 29, 2017 Discharge Disposition: Home Principal Diagnosis: Chest Pain - likely related to adverse effects from Rituxan Hypertension Rheumatoid Arthritis Medication Reconciliation New Medications: Amlodipine Besylate (Norvasc) 10 Mg Tab 1 TAB PO DAILY for 30 Days, #30 TAB 5 Refills Hydrochlorothiazide (Hctz) 12.5 Mg Cap 12.5 MG PO DAILY for 30 Days, #30 TAB Continued Medications: Folic Acid (Folvite) 1 Mg Tab 1 MG PO QAM Hydrocodone/Acetaminophen 7.5MG/325MG (Goodman 7.5MG/325MG) Tab 1 TAB PO Q6 PRN for Pain, TAB PRN PAIN Ibuprofen Tab (Advil) 200 Mg Tab 800 MG PO UD Methotrexate (Methotrexate) 2.5 Mg Tab 6 TABS PO TUESDAY Prednisone (Prednisone) 1 Mg Tab 1.5 MG PO QAM Admission Information HPI (per Admitting provider): Patient is a 52-year-old male with a PMH of HTN, tobacco use disorder and rheumatoid arthritis who presents from [facility] with sudden onset left chest/LUQ pain. Patient was receiving Rituxan infusion and started to experience a sore throat, trouble swallowing "tingling" all over his body. Then experienced sudden onset, 10/10 left lower chest/epigastric pain that felt like "someone punching me in the gut". Endorses profuse sweating, nausea and an episode of bilious vomit. Denies any shortness of breath, near syncope or radiation of pain to jaw or arms. Patient was taken to ED for further evaluation and symptoms completely resolved by the time he arrived. No previous history of heart disease, diabetes or high cholesterol. Patient's mom from [place] at age 58. Also has significant history of lupus in family with cardiac manifestations. Has experienced 2 previous cycles of Rituxan and tolerated them without a problem. Follows with Dr. Rodriguez of [facility] and current regimen includes 1.5 prednisone mg daily, Rituxan infusions and methotrexate 15 mg weekly. Denies fever, chills, lightheadedness, dizziness, near syncope, visual changes, chest pain, shortness of breath, abdominal pain, nausea, vomiting, bowel or bladder changes or LE swelling. Physical Exam (per Admitting): General Appearance: WD/WN, no apparent distress Head: normocephalic, atraumatic Eyes: normal inspection, PERRL, sclerae normal ENT: normal ENT inspection, hearing grossly normal, pharynx normal (moist mucous membranes ) Neck: supple, thyroid normal, trachea midline Respiratory/Chest: chest non-tender, lungs clear, normal breath sounds, no respiratory distress, no accessory muscle use Cardiovascular: regular rate, rhythm, no murmur, normal peripheral pulses Abdomen/GI: normal bowel sounds, non tender, soft, no organomegaly Back: normal inspection Extremities/Musculoskelatal: normal inspection, no calf tenderness, no pedal edema Neurologic/Psych: no motor/sensory deficits, alert, normal mood/affect, oriented x 3 Skin: normal color, warm/dry Hospital Course This is a 52 year old male with a past medical history of rheumatoid arthritis, hypertension, tobacco use disorder - presented with an adverse reaction to Rituxan, developing epigastric/chest pain Chest pain r/o ACS - patient with some EKG changes, no prior ones to compare - no elevated troponin x3 - stress test performed - negative - moderate LVH on echo - at this time, will manage risk factors (blood pressure) HTN - blood pressure elevated - will d/c with amlodipine 10mg and low dose HCTZ - outpatient PCP follow-up with Dr. Kruger in [facility] - outpatient f/u with Dr. Rodriguez - likely adverse effect from Rituxan Tobacco Use Disorder - counseled on tobacco cessation FULL CODE Total time spent on discharge = 25 minutes This includes examination of the patient, discharge planning, medication reconciliation, and communication with other providers. Discharge Instructions Please follow-up with Dr. Kruger at [facility] on TuesdayJanuary 04 at 8:25AM You are started on two blood pressure medications; primary care should recheck blood pressure as outpatient
[2017-12-30] MEDS ORDERED: AMLODIPINE BESYLATE 5 MG TAB PO SCH (09:00)
== END 2017-12-29 16:10 | disposition home or self-care (01) ==
LOC: C.EDB 12:13 → C.2T 15:14 → ENRESERV 16:27
PROVIDERS: ADMIT Internal Medicine; ATTEND Family Medicine
DX: R07.9 Chest pain, unspecified (principal); R94.31 Abnormal electrocardiogram [ECG] [EKG]; I10 Essential (primary) hypertension; M06.9 Rheumatoid arthritis, unspecified; F17.200 Nicotine dependence, unspecified, uncomplicated; Z79.52 Long term (current) use of systemic steroids; Z82.49 Family history of ischemic heart disease and other diseases of the circulatory system